=== PATIENT | male | born 1980 | race Caucasian/White ===

== ENCOUNTER 2023-11-12 08:27 | Emergency (ER) | payer BC ==
[~2023-11-12] VITALS: Ht 180.3 cm; Wt 82.0 kg
[2023-11-12 08:35] VITALS: O2SAT 97
[2023-11-12] MEDS ORDERED: LIDOCAINE 5% PATCH TOP STA (08:50)
[2023-11-12] MEDS ORDERED: KETOROLAC 60MG/2ML VIAL IM ONE (09:00)
[2023-11-12] MEDS ORDERED: KETOROLAC 30MG/ML VIAL IM SCH (09:15)
[2023-11-12] MEDS ORDERED: LIDO1ADH23 TP (11:07)
[2023-11-12] MEDS ORDERED: IBUP-2028 MT (11:07)
[2023-11-12 11:54] VITALS: BP 135/89; PULSE 64; RESP 18; TEMP 98.1
== END 2023-11-12 11:56 | disposition home or self-care (01) ==
LOC: ER 08:27
DX: M25.551 Pain in right hip (principal); M16.11 Unilateral primary osteoarthritis, right hip
CPT/HCPCS: 99283; 73502; 96372; J1885

== ENCOUNTER 2024-05-07 18:05 | Emergency (ER) | payer BC ==
[~2024-05-07] VITALS: Ht 180.3 cm; Wt 77.0 kg
[~2024-05-07 18:05] MED LIST: IBUP-2028 MT; LIDO1ADH23 TP
[2024-05-07 18:21] VITALS: TEMP 98.2; O2SAT 99
[2024-05-07 19:03] LABS: CLARITY URINE CLEAR (CLEAR); COLOR URINE YELLOW (YELLOW); GLUCOSE URINE NEGATIVE (NEGATIVE); KETONES URINE NEGATIVE (NEGATIVE); LEUKOCYTE ESTERASE URINE NEGATIVE (NEGATIVE); NITRITE URINE NEGATIVE (NEGATIVE); OCCULT BLOOD URINE 3+ (NEGATIVE); PROTEIN URINE TRACE (NEGATIVE); SPECIFIC GRAVITY URINE 1.019 (1.005-1.030); UROBILINOGEN URINE 0.2 E.U./dL (0.2-1.0)
[2024-05-07 19:18] LABS: BACTERIA URINE 1+; SQUAMOUS EPITHELIAL CELL URINE FEW /lpf (RARE/1+)
[2024-05-07 19:19] LABS: RBC URINE 15-25 /hpf (0-2); WBC URINE 0-2 /hpf (0-2)
[2024-05-07] MEDS ORDERED: KETOROLAC 30MG/ML VIAL IM ONE (21:00)
[2024-05-07 22:00] LABS: BASOPHILS % 0.6 % (0.0-2.0); HEMATOCRIT. 43.1 % (42.0-52.0); LYMPHOCYTES % 29.3 % (20.0-50.0); MEAN CORPUSCULAR HEMOGLOBIN 32.8 pg (28.0-32.0); MEAN CORPUSCULAR HGB CONC 34.7 g/dL (31.0-37.0); MEAN CORPUSCULAR VOLUME 94.4 fL (80.0-94.0); MEAN PLATELET VOLUME 8.2 fl (7.4-10.4); MONOCYTES % 8.1 % (2.0-8.0); PLATELET 224 x1000/uL (130-400); RED BLOOD CELL COUNT 4.56 mill/uL (4.7-6.1); RED CELL DISTRIBUTION WIDTH 12.2 % (11.6-14.6); WHITE BLOOD COUNT 5.1 x1000/uL (4.5-11.0)
[2024-05-07 22:08] LABS: CARBON DIOXIDE 28 mEq/L (21-32); CHLORIDE 106 mEq/L (98-107); POTASSIUM 3.8 mEq/L (3.5-5.1); SODIUM 141 mEq/L (136-145)
[2024-05-07 22:09] LABS: CALCIUM 9.5 mg/dL (8.7-10.4)
[2024-05-07 22:13] LABS: CREATININE 0.9 mg/dL (0.6-1.3)
[2024-05-07 22:14] LABS: GLUCOSE 119 mg/dL (70-105); UREA NITROGEN BLOOD 13 mg/dL (9-23)
[2024-05-07] MEDS: KETOROLAC 30MG/ML VIAL IM NR (23:37)
[2024-05-08] MEDS ORDERED: CIPR-263 MT (00:10)
[2024-05-08] MEDS ORDERED: IBUP-2028 MT (00:10)
[2024-05-08 00:16] VITALS: BP 140/90; PULSE 80; RESP 15
== END 2024-05-08 00:21 | disposition home or self-care (01) ==
LOC: ER 18:05
DX: R31.9 Hematuria, unspecified (principal); R30.0 Dysuria; R10.2 Pelvic and perineal pain
CPT/HCPCS: 80048; 81003; 85025; 87086; 36415; 74176; 96372; 99285; J1885; Z7610 ×2